=== PATIENT | female | born 1995 | race Caucasian/White ===

== ENCOUNTER 2025-04-26 17:40 | Emergency (ER) | payer MEDICAID ==
[~2025-04-26] VITALS: Ht 160 cm; Wt 49.9 kg
[2025-04-26] MEDS ORDERED: NALOXONE HCL 0.4 MG/ML AMPUL ONE (17:56)
[2025-04-26] MEDS ORDERED: ONDANSETRON HCL/PF 4 MG/2 ML VIAL ONE (17:56)
[2025-04-26] MEDS: IV NS 0.9% 1,000 ML BAG IV ONE (17:59)
[2025-04-26] MEDS: NALOXONE HCL 0.4 MG/ML AMPUL IV ONE (17:59)
[2025-04-26] MEDS: ONDANSETRON HCL/PF 4 MG/2 ML VIAL IVP ONE (18:00)
[2025-04-26 18:14] LABS: PLATELET COUNT (AUTO) 303 K/uL (150-450); RED BLOOD CELL COUNT(AUTO) 4.27 MIL/uL (4.0-5.2); RED CELL DISTRIBUTION WIDTH 14.8 % (11.5-15.0); WHITE BLOOD COUNT (AUTO) 7.5 K/uL (4.3-11.0)
[2025-04-26 18:22] LABS: CALCIUM, SERUM 9.0 mg/dL (8.5-10.1); CREATININE 0.7 mg/dL (0.6-1.3); SODIUM SERUM 141 mmol/L (136-145); UREA NITROGEN, BLOOD 18 mg/dL (7-18)
[2025-04-26 18:28] LABS: ASPARTATE AMINOTRANSFERASE 21 U/L (15-37); TOTAL PROTEIN, SERUM 7.2 g/dL (6.4-8.2)
[2025-04-26 19:04] LABS: APPEARANCE,URINE CLEAR (CLEAR); BLOOD, URINE Negative Ery/uL (NEGATIVE); LEUKOCYTE ESTERASE ,URINE Negative (NEGATIVE); NITRITE, URINE NEGATIVE (NEGATIVE); UGLUCOSE Negative (NEGATIVE)
[2025-04-26 19:06] LABS: ADD URINE CULTURE NO; SQUAMOUS EPITHELIAL CELL,UR Few /HPF (None Seen)
[2025-04-26 19:07] LABS: ALCOHOL, BLOOD < 3 mg/dL (0-10)
[2025-04-26 19:11] LABS: AMPHETAMINE, URINE POSITIVE (NEGATIVE); BARBITURATE, URINE NEGATIVE (NEGATIVE); COCCAINE, URINE NEGATIVE (NEGATIVE); OPIATE, URINE NEGATIVE (NEGATIVE)
[2025-04-26 19:12] LABS: BENZODIAZEPINE, URINE POSITIVE (NEGATIVE); CANNABINOID, URINE POSITIVE (NEGATIVE)
[2025-04-26] MEDS ORDERED: NALO4SPR BNOSTRILS (20:16)
[2025-04-27 00:01] VITALS: BP 118/68; TEMP 98.2; O2SAT 99
== END 2025-04-27 00:02 ==
LOC: ER 17:56
DX: T40.2X1A Poisoning by other opioids, accidental (unintentional), initial encounter (principal); Z79.899 Other long term (current) drug therapy; Y92.89 Other specified places as the place of occurrence of the external cause
CPT/HCPCS: 99285; 96374; 96361; 96375; 93005; 85025; 80048; 80076; 84703 ×2; 81001; 36415; 82962; 80143; 80320; 80307; J2312; J2405; J7030; G0480